=== PATIENT | male | born 1965 | race Caucasian/White ===

== ENCOUNTER 2016-12-02 21:27 | Emergency (ER) | payer BC, OTHER ==
[~2016-12-02] VITALS: Ht 180.3 cm; Wt 86.2 kg
[2016-12-02 21:29] VITALS: BP 122/66
== END 2016-12-02 22:16 | disposition home or self-care (01) ==
LOC: ER 21:27
DX: S62.631A Displaced fracture of distal phalanx of left index finger, initial encounter for closed fracture (principal); W20.8XXA Other cause of strike by thrown, projected or falling object, initial encounter; Y93.89 Activity, other specified; Y92.89 Other specified places as the place of occurrence of the external cause; Y99.8 Other external cause status